=== PATIENT | female | born 1990 | race Asian ===

== ENCOUNTER 2016-12-08 03:43 | Emergency (ER) | payer BC ==
[~2016-12-08] VITALS: Ht 167.6 cm; Wt 109.8 kg
== END 2016-12-08 04:30 | disposition home or self-care (01) ==
LOC: ED 03:43
PROC: 0CQ1XZZ Repair Lower Lip, External Approach (ICD-10-PCS; principal; 2016-12-08)
DX: S01.511A Laceration without foreign body of lip, initial encounter (principal); W22.8XXA Striking against or struck by other objects, initial encounter
CPT/HCPCS: 99283

== ENCOUNTER 2018-07-26 12:41 | Emergency (ER) | payer BC ==
[~2018-07-26] VITALS: Ht 167.6 cm; Wt 104.3 kg
[2018-07-26 13:21] LABS: PLATELET COUNT 271 K/uL (152-353)
[2018-07-26 13:29] LABS: POTASSIUM 3.6 mmol/L (3.6-5.2)
[2018-07-26 13:54] LABS: PARTIAL THROMBOPLASTIN TIME 24.2 SECONDS (24.5-33.6)
[2018-07-26 14:15] VITALS: BP 110/76; TEMP 97.9
== END 2018-07-26 14:20 | disposition home or self-care (01) ==
LOC: ED 12:41
PROVIDERS: Family Medicine
DX: R51 Headache (principal); R11.0 Nausea
CPT/HCPCS: 36415; 80053; 85027; 85610; 85730; 96372; 99283; J1885

== ENCOUNTER 2019-08-20 11:39 | Emergency (ER) | payer BC ==
[~2019-08-20] VITALS: Ht 167.6 cm; Wt 108.9 kg
[2019-08-20 11:57] VITALS: TEMP 98.7
[2019-08-20 13:09] LABS: PLATELET COUNT 290 K/uL (152-353)
[2019-08-20 13:17] LABS: POTASSIUM 3.7 mmol/L (3.6-5.2)
[2019-08-20 15:07] VITALS: BP 118/68
== END 2019-08-20 15:08 | disposition home or self-care (01) ==
LOC: ED 11:39
PROVIDERS: Family Medicine
DX: J06.9 Acute upper respiratory infection, unspecified (principal); K29.70 Gastritis, unspecified, without bleeding; R11.2 Nausea with vomiting, unspecified; Z20.828 Contact with and (suspected) exposure to other viral communicable diseases; F17.290 Nicotine dependence, other tobacco product, uncomplicated
CPT/HCPCS: 80053; 81000; 85027; 85379; 87635; 96360; 96374; 96375; 99284; G2023; J2405; U00003

== ENCOUNTER 2019-10-13 13:08 | Emergency (ER) | payer OTHER | END 2019-10-13 14:15 | disposition home or self-care (01) | LOC: ED 13:08 | DX: Z04.1 Encounter for examination and observation following transport accident (principal) | CPT/HCPCS: 99281 ==